=== PATIENT | male | born 2000 | race Caucasian/White ===

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

== ENCOUNTER → 2021-01-25 10:31 | Outpatient (CLI) | payer BC | END | disposition home or self-care (01) | LOC: D.CN 01-23 08:00 → D.MRI 10:31 → D.CN 11:00 | PROVIDERS: ATTEND Psychiatry & Neurology Neurology | DX: R40.4 Transient alteration of awareness (principal); H53.123 Transient visual loss, bilateral ==

== ENCOUNTER → 2021-01-31 06:04 | Outpatient (CLI) | payer BC | END | disposition home or self-care (01) | LOC: D.CN 06:04 | PROVIDERS: ATTEND Psychiatry & Neurology Neurology | DX: R40.4 Transient alteration of awareness (principal); H53.123 Transient visual loss, bilateral ==